=== PATIENT | female | born 1980 | race Caucasian/White ===

== ENCOUNTER 2020-02-06 11:51 | Emergency (ER) | payer OTHER, SELFPAY ==
[2020-02-06 12:05] VITALS: BP 144/77; PULSE 100; RESP 18; TEMP 36.7; O2SAT 98
--- NOTE | 2020-02-06 12:19 | ED.URI ---
HPI - URI/Sore Throat General Chief Complaint: Upper Respiratory Infection Stated Complaint: sore throat/ear ache/sinus drainage Time Seen by Provider: 02/06/20 12:19 Source: patient and RN notes reviewed Mode of arrival: ambulatory Limitations: no limitations History of Present Illness HPI Narrative: This is a 39 years old female presents to the office for an evaluation of sore throat since yesterday. Worse today. Described as painful to swallow. Denies fever, cough, congestion. She normally takes Zyrtec for allergy. 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 Related Data Home Medications Medication Instructions Recorded Confirmed amitriptyline 50 mg PO HS 05/25/19 02/06/20 erenumab-aooe [Aimovig 70 mg SUBCUT ONCE 05/25/19 02/06/20 Autoinjector] topiramate [Topamax] 100 mg PO BID 05/25/19 02/06/20 verapamil 80 mg PO BID 05/25/19 02/06/20 cetirizine 10 mg PO DAILY 06/08/19 02/06/20 diazepam 10 mg PO DAILY 06/08/19 02/06/20 diclofenac sodium 75 mg PO BID 06/08/19 02/06/20 fluoxetine 40 mg PO DAILY 06/08/19 02/06/20 norethindrone ac-eth estradiol 1 tablet PO DAILY 06/08/19 02/06/20 [08/03 ()] omeprazole 20 mg PO DAILY 06/08/19 02/06/20 trazodone 50 mg PO HS 06/08/19 02/06/20 Tylenol-Codeine #3 PRN 02/06/20 02/06/20 atorvastatin 20 mg PO HS 02/06/20 02/06/20 baclofen 20 mg PO DAILY 02/06/20 02/06/20 eletriptan [Relpax] 40 mg PO ONCE 02/06/20 02/06/20 gabapentin 300 mg PO TID 02/06/20 02/06/20 Allergies Allergy/AdvReac Type Severity Reaction Status Date / Time latex Allergy Itching Verified 06/08/19 17:41 Review of Systems Review of Systems: Narrative: CONSTITUTIONAL: Denies fever, chills EYES: Denies visual changes ENT: Denies rhinorrhea, congestion, otalgia. CARDIOVASCULAR: Denies chest pain, palpitation RESPIRATORY: Denies dyspnea, wheezing, cough GASTROINTESTINAL: Denies abdominal pain, nausea, vomiting SKIN: Denies rash MUSCULOSKELETAL: Denies acute joints pain NEUROLOGIC: Denies lightheaded All other systems reviewed are negative, except as documented in HPI. [facility] Past Medical History Medical History (Updated 02/06/20 @ 12:42 by PAMELA Wolf) Acid reflux Anxiety HLD (hyperlipidemia) HTN (hypertension) Hx of migraines Comments At time of signature, I agree with nursing past medical, surgical, social and family history. There is no relevant family history pertinent to the presenting complaint. Exam Narrative: Exam Narrative: GENERAL: This is a well-nourished, well-developed patient, in no apparent distress. EARS: External ears normal, auditory canals clear and without drainage, TMs normal without perforation. Hearing grossly intact. NOSE: External nose normal with no obvious nasal discharge, nares without redness, no rhinorrhea. THROAT: Mucous membranes moist, posterior pharynx erythema, edematous with drainage noted. NECK: Neck supple, non-tender without lymphadenopathy, masses or thyromegaly. CARDIOVASCULAR: Regular rate and rhythm without murmurs, gallops, or rubs. RESPIRATORY: Clear to auscultation. Breath sounds equal bilaterally. No wheezes, rales, or rhonchi. GASTROINTESTINAL: Abdomen soft, non-tender, nondistended. Bowel sounds are active. No hepato-splenomegaly, or palpable masses. No guarding. SKIN: warm, intact with no suspicious lesions or rash, good texture and turgor. NEURO: awake, alert, and oriented to person, place and time. There were no obvious focal neurologic abnormalities. Steady gait [place] Coma Scale Eye Opening: Spontaneous 4 [place] Coma Scale Motor: Obeys Commands 6 [place] Coma Scale Verbal: Oriented 5 Course Vital Signs Vital signs: Vital Signs Temperature 98.0 F 02/06/20 12:05 Pulse Rate 100 02/06/20 12:05 Respiratory Rate 18 02/06/20 12:05 Blood Pressure 144/77 H 02/06/20 12:05 Pulse Oximetry 98 02/06/20 12:05 Temperature 98.0 F 02/06/20 12:05 Pulse Rate 100 02/06/20 12:05 Respiratory Rate 18 07
== END 2020-02-06 12:45 | disposition home or self-care (01) ==
PROVIDERS: Emergency Provider Nurse Practitioner; PCP Physician Assistant
DX: L01.00 Impetigo, unspecified (principal); J02.9 Acute pharyngitis, unspecified; K21.9 Gastro-esophageal reflux disease without esophagitis; F41.9 Anxiety disorder, unspecified; E78.5 Hyperlipidemia, unspecified; I10 Essential (primary) hypertension
CPT/HCPCS: 87081; 87880; 99213; G0463

== ENCOUNTER 2020-02-13 13:24 | Emergency (ER) | payer OTHER, SELFPAY ==
[2020-02-13 13:41] VITALS: BP 153/63; PULSE 96; RESP 14; TEMP 36.7; O2SAT 99
--- NOTE | 2020-02-13 14:25 | ED.URI ---
HPI - URI/Sore Throat General Chief Complaint: Upper Respiratory Infection Stated Complaint: Cold/ Flu symptoms Time Seen by Provider: 02/13/20 14:25 Source: patient and RN notes reviewed Mode of arrival: ambulatory Limitations: no limitations History of Present Illness HPI Narrative: This is a 39 years old female for an evaluation of congestion for about a week. She was seen here about a week ago for similar symptoms however her sore throat has resolved after prednisone. Then she developed severe fatigue, with coughing which she could not sleep at nighttime. She had 2 negative Covid testing according to patient. She is a pharmacist tech. She tried [id number] Delsym, and Mucinex D with no relief. Her father is sick with similar symptoms who is currently on Z-Richard. Related Data Home Medications Medication Instructions Recorded Confirmed amitriptyline 50 mg PO HS 05/25/19 02/13/20 erenumab-aooe [Aimovig 70 mg SUBCUT ONCE 05/25/19 02/13/20 Autoinjector] topiramate [Topamax] 100 mg PO BID 05/25/19 02/13/20 verapamil 80 mg PO BID 05/25/19 02/13/20 cetirizine 10 mg PO DAILY 06/08/19 02/13/20 diazepam 10 mg PO DAILY 06/08/19 02/13/20 diclofenac sodium 75 mg PO BID 06/08/19 02/13/20 fluoxetine 40 mg PO DAILY 06/08/19 02/13/20 norethindrone ac-eth estradiol 1 tablet PO DAILY 06/08/19 02/13/20 [08/03 (21)] omeprazole 20 mg PO DAILY 06/08/19 02/13/20 trazodone 50 mg PO HS 06/08/19 02/13/20 atorvastatin 20 mg PO HS 02/06/20 02/13/20 baclofen 20 mg PO DAILY 02/06/20 02/13/20 eletriptan [Relpax] 40 mg PO ONCE 02/06/20 02/13/20 gabapentin 300 mg PO TID 02/06/20 02/13/20 Allergies Allergy/AdvReac Type Severity Reaction Status Date / Time latex Allergy Itching Verified 02/13/20 13:47 Review of Systems Review of Systems: Narrative: CONSTITUTIONAL: Denies fever. Reports bodyache and chills and extreme tired EYES: Denies visual changes. ENT: Reports nasal drainage with green discharge and facial pain CARDIOVASCULAR: Denies chest pain, palpitation RESPIRATORY: Denies dyspnea, wheezing. Reports cough with green sputum GASTROINTESTINAL: Denies abdominal pain, nausea, vomiting GENITOURINARY: Denies urinary symptoms SKIN: Denies rash MUSCULOSKELETAL: Denies acute back pain. Reports feeling malaise NEUROLOGIC: Denies lightheaded All other systems reviewed are negative, except as documented in HPI. [facility] Past Medical History Medical History (Updated 02/13/20 @ 14:40 by PAMELA Wolf) Acid reflux Anxiety HLD (hyperlipidemia) HTN (hypertension) Hx of migraines Comments At time of signature, I agree with nursing past medical, surgical, social and family history. There is no relevant family history pertinent to the presenting complaint. Exam Narrative: Exam Narrative: GENERAL: This is a well-nourished, well-developed patient, in no apparent distress. EARS: External ears normal, auditory canals clear and without drainage, TMs normal without perforation. Hearing grossly intact. NOSE: External nose normal with no obvious nasal discharge, nares without redness, no rhinorrhea. THROAT: Mucous membranes moist, posterior pharynx erythema with post nasal drainage. NECK: Neck supple, non-tender without lymphadenopathy, masses or thyromegaly. CARDIOVASCULAR: Regular rate and rhythm without murmurs, gallops, or rubs. RESPIRATORY: Clear to auscultation. Breath sounds equal bilaterally. No wheezes, rales, or rhonchi. GASTROINTESTINAL: Abdomen soft, non-tender, nondistended. Bowel sounds are active. No hepato-splenomegaly, or palpable masses. No guarding. SKIN: warm, intact with no suspicious lesions or rash, good texture and turgor. NEURO: awake, alert, and oriented to person, place and time. There were no obvious focal neurologic abnormalities. Steady gait [place] Coma Scale Eye Opening: Spontaneous 4 [place] Coma Scale Motor: Obeys Commands 6 [place] Coma Scale Verbal: Oriented 5 Course Vital Signs Vital signs: Annel
== END 2020-02-13 14:40 | disposition home or self-care (01) ==
PROVIDERS: Emergency Provider Nurse Practitioner; PCP Physician Assistant
DX: J06.9 Acute upper respiratory infection, unspecified (principal); B37.9 Candidiasis, unspecified; E78.5 Hyperlipidemia, unspecified; I10 Essential (primary) hypertension; K21.9 Gastro-esophageal reflux disease without esophagitis
CPT/HCPCS: 99213; G0463

== ENCOUNTER 2020-09-06 10:43 | Emergency (ER) | payer OTHER, SELFPAY ==
[2020-09-06 10:50] VITALS: BP 136/65; PULSE 80; RESP 18; TEMP 36.6; O2SAT 100
--- NOTE | 2020-09-06 11:21 | ED.URI ---
HPI - URI/Sore Throat General Chief Complaint: Upper Respiratory Infection Stated Complaint: Sore Throat/Nasal Drainage Source: patient Mode of arrival: ambulatory Limitations: no limitations History of Present Illness HPI Narrative: Patient is a 40-year-old female who presents complaining of sore throat x2 days. Patient also reports intermittent cough x2 days and general malaise. She denies chest pain or shortness of breath. She reports that she has been vaccinated x2, last vaccine approximately 10 days ago. She denies known Covid exposure, however she does work at local [employer]. She denies nausea, vomiting, diarrhea. She denies taking [id number] medications at this time for symptom relief. MD elicited complaint: sore throat Related Data Home Medications Medication Instructions Recorded Confirmed erenumab-aooe [Aimovig 70 mg SUBCUT ONCE 05/25/19 09/06/20 Autoinjector] topiramate [Topamax] 100 mg PO BID 05/25/19 09/06/20 verapamil 80 mg PO BID 05/25/19 09/06/20 cetirizine 10 mg PO DAILY 06/08/19 09/06/20 diazepam 10 mg PO DAILY 06/08/19 09/06/20 diclofenac sodium 75 mg PO BID 06/08/19 09/06/20 fluoxetine 40 mg PO DAILY 06/08/19 09/06/20 norethindrone ac-eth estradiol 1 tablet PO DAILY 06/08/19 09/06/20 [08/03 ()] omeprazole 20 mg PO DAILY 06/08/19 09/06/20 trazodone 50 mg PO HS 06/08/19 09/06/20 atorvastatin 20 mg PO HS 02/06/20 09/06/20 baclofen 20 mg PO DAILY 02/06/20 09/06/20 eletriptan [Relpax] 40 mg PO ONCE PRN 02/06/20 09/06/20 gabapentin 300 mg PO QAM 02/06/20 09/06/20 acetaminophen-codeine 1 tablet PO TID 09/06/20 09/06/20 gabapentin 300 mg PO HS 09/06/20 09/06/20 gabapentin 600 mg PO DAILY 09/06/20 09/06/20 Allergies Allergy/AdvReac Type Severity Reaction Status Date / Time latex Allergy Mild Itching Verified 09/06/20 10:56 Review of Systems Review of Systems: Narrative: CONSTITUTIONAL: Denies fever, chills, or sweats. EYES: Denies visual changes, redness, or discharge. ENT: Reports intermittent rhinorrhea, congestion, and sore throat. CARDIOVASCULAR: Denies chest pain, palpitations, or edema. RESPIRATORY: Denies cough or dyspnea. GASTROINTESTINAL: Denies abdominal pain, nausea, vomiting, or diarrhea. GENITOURINARY: Denies dysuria or hematuria. SKIN: Denies rash or itching. MUSCULOSKELETAL: Denies back pain, joint pain, or myalgia. NEUROLOGIC: Denies headache, numbness, dizziness, or weakness. PSYCHIATRIC: Denies anxiety or depression. [facility] Past Medical History Medical History Acid reflux Anxiety HLD (hyperlipidemia) HTN (hypertension) Hx of migraines IBS (irritable bowel syndrome) Surgical History Surgical History No significant past surgical history Family History Family History (Updated 09/06/20 @ 11:22 by PAMELA Staley) Other Hypertension Social History Social History (Updated 09/06/20 @ 11:23 by PAMELA Staley) Smoking status: Never smoker Alcohol intake: current Alcohol use details: Occasional Substance use: never Living arrangements: with family Comments At the time of signature, I have reviewed and agree with nursing past medical, surgical, social, and family history unless otherwise noted. Please see nursing chart for further information. There is no relevant family history pertinent to the presenting complaint. Exam Narrative: Exam Narrative: GENERAL: Well-appearing, well-nourished, and in no acute distress. HEAD: Normocephalic, atraumatic. EYES: EOMI. No redness or drainage. Conjunctiva are normal. ENT: Mucous membranes pink and moist. Nares clear. No rhinorrhea. Throat with moderate erythema and edema. Uvula midline. NECK: AROM. Supple. Positive cervical lymphadenopathy. CHEST: No respiratory distress. HEART: Regular rate and rhythm. EXTREMITIES: Normal range of motion. No edema. SKIN: Warm, dry, no rash
== END 2020-09-06 11:50 | disposition home or self-care (01) ==
PROVIDERS: Emergency Provider Nurse Practitioner; PCP Physician Assistant
DX: R05 Cough (principal); J06.9 Acute upper respiratory infection, unspecified; J02.9 Acute pharyngitis, unspecified; Z20.822 Contact with and (suspected) exposure to COVID-19; K21.9 Gastro-esophageal reflux disease without esophagitis; E78.5 Hyperlipidemia, unspecified; I10 Essential (primary) hypertension; F41.9 Anxiety disorder, unspecified
CPT/HCPCS: 87081; 87426; 87880; 99213; C9803; G0463

== ENCOUNTER 2021-03-01 10:24 | Emergency (ER) | payer OTHER, SELFPAY ==
--- NOTE | ~2021-03-01 | XR_ITS ---
EXAMINATION: XR chest 2V 03/01/2021 10:56 INDICATION: Congestion and cough PROCEDURE: 2 view chest COMPARISON: No prior studies for comparison. FINDINGS: The lungs are clear. The cardiomediastinal silhouette is within normal limits. There are no pleural effusions. There is no pneumothorax suspected. IMPRESSION: 1: NO ACUTE CARDIOPULMONARY DISEASE. Reviewed, dictated and finalized at location A.
[2021-03-01 10:30] VITALS: BP 140/85; PULSE 108; RESP 16; TEMP 36.6; O2SAT 99
--- NOTE | 2021-03-01 10:42 | ED.URI ---
HPI - URI/Sore Throat General Chief Complaint: Upper Respiratory Infection Stated Complaint: congestion cough tired Time Seen by Provider: 03/01/21 10:40 Source: patient Mode of arrival: ambulatory Limitations: no limitations History of Present Illness HPI Narrative: Bonita Otero is a 40 yo female with PMH chronic pain, GERD, migraines, who comes here with cough, tiredness,, post nasal congestion who is vaccinated against covid, patient states has been sick for couple days and has taken [id number] Mucinex and antihistamine with little effect feels very exhausted and is drinking a lot of fluids Related Data Home Medications Medication Instructions Recorded Confirmed erenumab-aooe [Aimovig 70 mg SUBCUT ONCE 05/25/19 03/01/21 Autoinjector] topiramate [Topamax] 100 mg PO BID 05/25/19 03/01/21 verapamil 80 mg PO BID 05/25/19 03/01/21 cetirizine 10 mg PO DAILY 06/08/19 03/01/21 diazepam 10 mg PO DAILY 06/08/19 03/01/21 diclofenac sodium 75 mg PO BID 06/08/19 03/01/21 fluoxetine 40 mg PO DAILY 06/08/19 03/01/21 norethindrone ac-eth estradiol 1 tablet PO DAILY 06/08/19 03/01/21 [08/03 ()] omeprazole 20 mg PO DAILY 06/08/19 03/01/21 trazodone 50 mg PO HS 06/08/19 03/01/21 atorvastatin 20 mg PO HS 02/06/20 03/01/21 baclofen 20 mg PO DAILY 02/06/20 03/01/21 eletriptan [Relpax] 40 mg PO ONCE PRN 02/06/20 03/01/21 gabapentin 300 mg PO QAM 02/06/20 03/01/21 acetaminophen-codeine 1 tablet PO TID 09/06/20 03/01/21 gabapentin 300 mg PO HS 09/06/20 03/01/21 gabapentin 600 mg PO DAILY 09/06/20 03/01/21 Allergies Allergy/AdvReac Type Severity Reaction Status Date / Time latex Allergy Mild Itching Verified 03/01/21 10:42 Review of Systems Review of Systems: CONSTITUTIONAL: Denies fever, chills, sweats. EYES: Denies visual changes, redness, discharge. ENT: Has rhinorrhea, has congestion, sore throat, otalgia. CARDIOVASCULAR: Denies chest pain, palpitations, edema. RESPIRATORY: Denies dyspnea, wheezing, has cough GASTROINTESTINAL: Denies abdominal pain, nausea, vomiting, diarrhea. GENITOURINARY: Denies dysuria, hematuria, abnormal discharge SKIN: Denies rash or itching. NEUROLOGIC: Denies numbness, or focal weakness. PSYCHIATRIC: Denies anxiety or depression. PMFSH Past Medical History Medical History Acid reflux Anxiety HLD (hyperlipidemia) HTN (hypertension) Hx of migraines IBS (irritable bowel syndrome) Surgical History Surgical History No significant past surgical history Family History Family History (Updated 03/01/21 @ 10:54 by Ping Hutchison CNP) Mother Diabetes mellitus Heart disease Hypertension Father Heart disease Acute myocardial infarction Hypertension Social History Social History Smoking status: Never smoker Alcohol intake: current Alcohol use details: Occasional Substance use: never Comments At time of signature, I agree with nursing past medical, surgical, social and family history. There is no relevant family history pertinent to the presenting complaint. Exam Narrative: GENERAL: This is a well-nourished, well-developed patient, in moderate distress. HEAD: normocephalic, atraumatic. EYES: Sclera clear/white. Vision is grossly intact. EARS: External ears normal, auditory canals clear and without drainage, Hearing grossly intact. NOSE: External nose normal with nasal discharge, nares with redness, has rhinorrhea. THROAT: Mucous membranes moist, posterior pharynx NECK: Neck supple, non-tender CARDIOVASCULAR: Tachycardic rate and rhythm without murmurs, gallops, or rubs. RESPIRATORY: Coarse to auscultation. Breath sounds equal bilaterally. No wheezes, rales, or rhonchi. GASTROINTESTINAL: Abdomen soft, SKIN: warm, intact with no suspicious lesions or rash, good texture and turg
[2021-03-01 10:45] VITALS: BP 140/85; PULSE 108; RESP 16; TEMP 36.6; O2SAT 99
[2021-03-02 17:13] LABS: SARS-CoV-2 RNA PCR Negative
== END 2021-03-01 11:16 | disposition home or self-care (01) ==
PROVIDERS: Emergency Provider Nurse Practitioner; PCP Internal Medicine
DX: J06.9 Acute upper respiratory infection, unspecified (principal); Z20.822 Contact with and (suspected) exposure to COVID-19; K21.9 Gastro-esophageal reflux disease without esophagitis; F41.9 Anxiety disorder, unspecified; E78.5 Hyperlipidemia, unspecified
CPT/HCPCS: 71046; 87426; 99213; C9803; G0463; U0003; U0005